=== PATIENT | male | born 1955 | race Caucasian/White ===

== ENCOUNTER 2018-05-08 15:18 | Emergency (ER) | payer BC, OTHER ==
[2018-05-08 15:31] VITALS: BP 158/80; PULSE 16; RESP 71; TEMP 98.7; O2SAT 97
== END 2018-05-08 17:05 | disposition home or self-care (01) | DRG 605 ==
LOC: ED 15:18
DX: S60.022A Contusion of left index finger without damage to nail, initial encounter (principal)
CPT/HCPCS: 99282; 99283; A6402

== ENCOUNTER 2019-02-10 14:55 | Emergency (ER) | payer BC, OTHER ==
[2019-02-10 15:04] VITALS: TEMP 97.8
[2019-02-10 16:08] LABS: ALBUMIN 3.9 gm/dl (3.4-5.0); BILIRUBIN,TOTAL 0.8 mg/dl (0.2-1.0); CALCIUM 8.5 mg/dl (8.5-10.1); CARBON DIOXIDE 24.9 mEq/L (21-32); CREATININE 1.51 mg/dl (0.80-1.30); TOTAL PROTEIN 6.6 gm/dl (6.4-8.2)
[2019-02-10 16:38] VITALS: BP 136/81; PULSE 585; O2SAT 92
[2019-02-10 16:41] VITALS: RESP 18
== END 2019-02-10 16:30 | disposition home or self-care (01) ==
LOC: ED 14:55
DX: T22.011A Burn of unspecified degree of right forearm, initial encounter (principal); W86.8XXA Exposure to other electric current, initial encounter; E86.0 Dehydration
CPT/HCPCS: 36415; 80053; 82550; 93005; 99283